=== PATIENT | female | born 1995 ===

== ENCOUNTER 2017-03-21 20:57 | Emergency (ER) | payer MEDICAID ==
[2017-03-21 21:05] VITALS: BP 117/79
[2017-03-21] MEDS ORDERED: diphenhydrAMINE 50 MG/ML SDV IVPUSH ONE (22:02)
[2017-03-21] MEDS ORDERED: Ketorolac 30 MG/ML SDV IVPUSH ONE (22:02)
[2017-03-21] MEDS ORDERED: Ondansetron 4 MG/2 ML SDV IVPUSH STA (22:02)
[2017-03-21] MEDS ORDERED: Sodium Chloride 0.9% 1,000 ML IV ONE (22:02)
[2017-03-21] MEDS ORDERED: ALPRAZolam 0.25 MG Tab PO ONE (22:48)
--- NOTE | 2017-03-21 22:57 | EDM.PDOC ---
ED HPI GENERAL MEDICAL PROBLEM - General Chief Complaint: Headache Stated Complaint: migraine Time Seen by Provider: 03/21/17 22:00 Source of Information: Reports: Patient History Limitations: Reports: No Limitations - History of Present Illness INITIAL COMMENTS - FREE TEXT/NARRATIVE: This patient is a 21 year old female that presents to the ER. Patient reports that 3 days ago she started having a general headache. She reports she has had nausea, photophobia, phonophobia. She reports that she has as history of migraines and this feels typical of her migraines. She reports that she has also had some mild anxiety due to he kids at home. She also has requested a test. Patient denies v, d, f, cp, soa, neck pain, neck stiffness, abd pain, bowel changes. She reports urge to urinate at times. She does not appear in acute distress. Onset: Today Onset Date: 03/18/17 Location: Reports: Head Severity: Mild Improves with: Reports: None Worsens with: Reports: None Associated Symptoms: Reports: Headaches, Nausea/Vomiting. 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 OB/BYN History: HAS ONE CHILD AND HAS HAD ONE MISCARRIAGE Musculoskeletal History: Reports: Other (See Below) Other Musculoskeletal History: slipped disc and fractured disc Social & Family History - Family History Family Medical History: Noncontributory - Tobacco Use Smoking Status *Q: Never Smoker Used Tobacco, but Quit: Yes Month Tobacco Last Used: april Second Hand Smoke Exposure: No - Caffeine Use Caffeine Use: Reports: Soda - Alcohol Use Days Per Week of Alcohol Use: 2 Number of Drinks Per Day: 7 Total Drinks Per Week: 14 - Recreational Drug Use Recreational Drug Use: No ED ROS GENERAL - Review of Systems Review Of Systems: See Below Constitutional: Reports: No Symptoms HEENT: Reports: Other (photophobia, phonophobia. ) Respiratory: Reports: No Symptoms Cardiovascular: Reports: No Symptoms Endocrine: Reports: No Symptoms GI/Abdominal: Reports: Nausea. Denies: Vomiting : Reports: No Symptoms Musculoskeletal: Reports: No Symptoms Skin: Reports: No Symptoms Neurological: Reports: Headache. Denies: Confusion, Dizziness, Numbness, Paresthesia, Pre-Existing Deficit, Seizure, Syncope, Tingling, Tremors, Trouble Speaking, Difficulty Walking, Weakness, Change in Speech, Gait Disturbance Psychiatric: Reports: Anxiety Hematologic/Lymphatic: Reports: No Symptoms Immunologic: Reports: No Symptoms - Physical Exam Exam: See Below Exam Limited By: No Limitations General Appearance: Alert, WD/WN, No Apparent Distress Eye Exam: Bilateral Eye: EOMI, Normal Fundi, Normal Inspection, PERRL Ears: Normal External Exam, Normal Canal, Hearing Grossly Normal, Normal TMs Nose: Normal Inspection, Normal Mucosa, No Blood Throat/Mouth: Normal Inspection, Normal Lips, Normal Teeth, Normal Gums, Normal Oropharynx, Normal Voice, No Airway Compromise Head Exam: Atraumatic, Normocephalic Neck: Normal Inspection, Supple, Non-Tender, Full Range of Motion Respiratory/Chest: No Respiratory Distress, Lungs Clear, Normal Breath Sounds, No Accessory Muscle Use Cardiovascular: Normal Peripheral Pulses, Regular Rate, Rhythm, No Edema, No Gallop, No JVD, No Murmur, No Rub GI/Abdominal: Soft, Non-Tender Neuro Exam (Abbreviated): Alert, Oriented, CN II-XII Intact, Normal Cognition, Normal Gait, No Motor/Sensory Deficits Back Exam: Normal Inspection, Full Range of Motion. No: CVA Tenderness (L), CVA Tenderness (R) Extremities: Normal Inspection, Normal Range of Motion, Non-Tender, No Pedal Edema, Normal Capillary Refill Psychiatric: Normal Affect, Normal Mood Skin Exam: Warm, Dry, Intact, Normal Color, No Rash Course - Vital Signs Last Recorded V/S: Last Vital Signs Temp 97.8 F 03/21/17 20:58 Pulse 78 03/21/17 20:58 Resp 20 03/21/17 20:58 BP 117/79 03/21/17 20:58 Pulse Ox 96 03/21/17 20:58 - Orders/Labs/Meds Labs: Laboratory Tests 03/21/17 03/21/17 Range/Units 21:07 22:14 Urine Color Yellow (YELLOW) Urine Appearance Clear (CLEAR) Urine pH 5.5 (4.5-8.0) Ur Specific [place] >= 1.030 H (1.003-1.020) Urine Protein Trace H (NEGATIVE) mg/dL Urine Glucose (UA) Negative (NEGATIVE) mg/dL Urine Ketones Trace H (NEGATIVE) mg/dL Urine Occult Blood Negative (NEGATIVE) Urine Nitrite Negative (NEGATIVE) Urine Bilirubin Negative (NEGATIVE) Urine Urobilinogen 0.2 (0.2-1.0) EU/dL Ur Leukocyte Esterase Negative (NEGATIVE) Urine RBC Not seen (0-5) /HPF Urine WBC Not seen (0-5) /HPF Urine HCG, Qual Negative Meds: Medications Discontinued Medications Generic Name Dose Route Start Last Admin Trade Name Freq PRN Reason Stop Dose Admin Alprazolam 0.25 mg 03/21/17 22:48 Xanax PO 03/21/17 22:49 NOW ONE Diphenhydramine HCl 25 mg 03/21/17 22:02 03/21/17 22:09 Benadryl IVPUSH 03/21/17 22:03 25 mg ONETIME ONE Administration Sodium Chloride 1,000 mls @ 1,000 mls/hr 03/21/17 22:02 03/21/17 22:09 Normal Saline IV 03/21/17 23:01 1,000 mls/hr .BOLUS ONE Administration Ketorolac Tromethamine 30 mg 03/21/17 22:02 03/21/17 22:09 Toradol IVPUSH 03/21/17 22:03 30 mg ONETIME ONE Administration Ondansetron HCl 4 mg 03/21/17 22:02 03/21/17 22:09 Zofran IVPUSH 03/21/17 22:03 4 mg NOW STA Administration - Re-Assessments/Exams Free Text/Narrative Re-Assessment/Exam: 03/21/17 22:57 Patient reports her pain has improved and her nausea is completely gone. Departure - Departure Time of Disposition: 22:57 Disposition: Home, Self-Care 01 Condition: Good Clinical Impression: Migraine - Discharge Information Instructions: Migraine Headache, [id number] Referrals: Sylwia Snider MD [Primary Care Provider] - Forms: ED Department Discharge Additional Instructions: Followup with your primary care provider Return to the ER for worsening of condition or any emergent concerns Increase fluids Go home to a quite, cool, dark room and rest - Assessment/Plan Plan: PLEASE SEE RN NOTE FOR PFSH.
== END 2017-03-21 23:20 | disposition home or self-care (01) ==
LOC: CC.ED 20:57
DX: G43.909 Migraine, unspecified, not intractable, without status migrainosus (principal)
CPT/HCPCS: 81001; 81025; 96361; 96374; 96375; 99283; A9270; J1200; J1885; J2405; J7030

== ENCOUNTER 2017-03-22 12:56 | Emergency (ER) | payer MEDICAID ==
[2017-03-22 13:02] VITALS: BP 128/85
[2017-03-22] MEDS ORDERED: fentaNYL 100 MCG/2 ML SDV IM ONE (13:36)
[2017-03-22] MEDS ORDERED: Promethazine 25 MG Tab PO STA (13:37)
--- NOTE | 2017-03-22 13:42 | EDM.PDOC ---
ED HPI GENERAL MEDICAL PROBLEM - General Chief Complaint: Headache Stated Complaint: migraine Time Seen by Provider: 03/22/17 13:30 Source of Information: Reports: Patient History Limitations: Reports: No Limitations - History of Present Illness INITIAL COMMENTS - FREE TEXT/NARRATIVE: This patient is a 21 year old female that presents to the ER. Patient reports for 4 days now having global headache. She reports photophobia, phonopobia, throbbing headache. She reports having migraines and this feels like her migraine. Patient was seen yesterday for the same complaint. Patient reports her headache improved here, then went home and her headache returned. Patient denies n, v, d, f, congestion, drainage, neck pain, neck stiffness, cp, soa, abd pain, urinary/bowel changes, rashes. Nuchal rigitity tests are negative. Patient is fully alert and oriented. Has no neuro deficits. Duration: Day(s): (4) Location: Reports: Head Quality: Reports: Throbbing Severity: Moderate Improves with: Reports: None Worsens with: Reports: None Associated Symptoms: Reports: Headaches. 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 OB/BYN History: HAS ONE CHILD AND HAS HAD ONE MISCARRIAGE Musculoskeletal History: Reports: Other (See Below) Other Musculoskeletal History: slipped disc and fractured disc Neurological History: Reports: Migraines Psychiatric History: Reports: Anxiety, Depression Social & Family History - Family History Family Medical History: Noncontributory - Tobacco Use Smoking Status *Q: Never Smoker Used Tobacco, but Quit: Yes Month Tobacco Last Used: april Second Hand Smoke Exposure: No - Caffeine Use Caffeine Use: Reports: Soda - Alcohol Use Days Per Week of Alcohol Use: 2 Number of Drinks Per Day: 7 Total Drinks Per Week: 14 - Recreational Drug Use Recreational Drug Use: No ED ROS GENERAL - Review of Systems Review Of Systems: See Below Constitutional: Reports: No Symptoms HEENT: Reports: Other (photophobia, phonophobia. ). Denies: Rhinitis, Sinus Problem Respiratory: Reports: No Symptoms Cardiovascular: Reports: No Symptoms Endocrine: Reports: No Symptoms GI/Abdominal: Reports: No Symptoms : Reports: No Symptoms Musculoskeletal: Reports: No Symptoms Skin: Reports: No Symptoms Neurological: Reports: Headache. Denies: Confusion, Dizziness, Numbness, Paresthesia, Pre-Existing Deficit, Seizure, Syncope, Tingling, Tremors, Trouble Speaking, Difficulty Walking, Weakness, Change in Speech, Gait Disturbance Psychiatric: Reports: No Symptoms Hematologic/Lymphatic: Reports: No Symptoms Immunologic: Reports: No Symptoms - Physical Exam Exam: See Below Exam Limited By: No Limitations General Appearance: Alert, WD/WN, No Apparent Distress Eye Exam: Bilateral Eye: EOMI, Normal Fundi, PERRL Ears: Normal External Exam, Normal Canal, Hearing Grossly Normal, Normal TMs Nose: Normal Inspection, Normal Mucosa, No Blood Throat/Mouth: Normal Inspection, Normal Lips, Normal Teeth, Normal Gums, Normal Oropharynx, Normal Voice, No Airway Compromise Head Exam: Atraumatic, Normocephalic Neck: Normal Inspection, Supple, Non-Tender, Full Range of Motion, Other ( Negative Kernigs and Brudzinski tests. ) Respiratory/Chest: No Respiratory Distress, Lungs Clear, Normal Breath Sounds, No Accessory Muscle Use Cardiovascular: Normal Peripheral Pulses, Regular Rate, Rhythm, No Edema, No Gallop, No JVD, No Murmur, No Rub Neuro Exam (Abbreviated): Alert, Oriented, CN II-XII Intact, Normal Cognition, Normal Gait, No Motor/Sensory Deficits Back Exam: Normal Inspection, Full Range of Motion Extremities: Normal Inspection, Normal Range of Motion, Non-Tender, No Pedal Edema, Normal Capillary Refill Psychiatric: Normal Affect, Normal Mood Skin Exam: Warm, Dry, Intact, Normal Color, No Rash Course - Vital Signs Last Recorded V/S: Last Vital Signs Temp 97.1 F 03/22/17 12:57 Pulse 85 03/22/17 12:57 Resp 16 03/22/17 12:57 BP 128/85 03/22/17 12:57 Pulse Ox 98 03/22/17 12:57 - Orders/Labs/Meds Orders: Active Orders 24 hr Category Date Time Status Head wo Cont [CT] Stat Exams 03/22/17 13:42 Taken cefTRIAXone [Rocephin] Med 03/22/17 14:30 Once 1 gm IM ONETIME ONE Meds: Medications Discontinued Medications Generic Name Dose Route Start Last Admin Trade Name Rogelio PRN Reason Stop Dose Admin Fentanyl 50 mcg 03/22/17 13:36 Sublimaze IM 03/22/17 13:37 ONETIME ONE Promethazine HCl 25 mg 03/22/17 13:37 Phenergan PO 03/22/17 13:38 NOW STA - Radiology Interpretation Free Text/Narrative:: Head CT: Discussed with radiologist: Acute sinusitis ethmoid, frontal. No acute intracranial abnormality. CT Results Date: 03/22/17 CT Results Time: 14:30 Departure - Departure Time of Disposition: 14:31 Disposition: Home, Self-Care 01 Condition: Fair Clinical Impression: Migraine Acute sinusitis Qualifiers: Sinusitis location: frontal Recurrence: non-recurrent Qualified Code(s): J01.10 - Acute frontal sinusitis, unspecified - Discharge Information Referrals: Sylwia Snider MD [Primary Care Provider] - Forms: ED Department Discharge Additional Instructions: Followup with your primary care provider Return to the ER for worsening of condition or any emergent concerns Increase fluids Over the counter sinus rinses and medications Augmentin 875mg 1 pill twice a day for 10 days #20 no refill Tylenol/Motrin for pain - My Orders Last 24 Hours: My Active Orders 03/22/17 13:42 Head wo Cont [CT] Stat 03/22/17 14:30 cefTRIAXone [Rocephin] 1 gm IM ONETIME ONE - Assessment/Plan Last 24 Hours: My Active Orders 03/22/17 13:42 Head wo Cont [CT] Stat 03/22/17 14:30 cefTRIAXone [Rocephin] 1 gm IM ONETIME ONE Plan: PLEASE SEE RN NOTE FOR PFSH.
[2017-03-22] MEDS ORDERED: cefTRIAXone 1 GM Vial IM ONE (14:30)
[2017-03-22] MEDS ORDERED: Lidocaine 1% 20 ML MDV ONE (14:36)
== END 2017-03-22 15:15 | disposition home or self-care (01) ==
LOC: CC.ED 12:56
DX: G43.909 Migraine, unspecified, not intractable, without status migrainosus (principal); J01.10 Acute frontal sinusitis, unspecified; F41.9 Anxiety disorder, unspecified; F32.9 Major depressive disorder, single episode, unspecified
CPT/HCPCS: 70450; 96372; 99283; A9270; J0696; J3010

== ENCOUNTER 2017-03-28 12:31 | Emergency (ER) | payer MEDICAID ==
[2017-03-28] MEDS ORDERED: Codeine/Promethazine 10-6.25 MG/5 ML Syrup 5 ML UD Cup PO ONE (12:32)
[2017-03-28 12:36] VITALS: BP 136/89
[2017-03-28] MEDS ORDERED: Levofloxacin 500 MG Tab PO ONE (12:53)
[2017-03-28] MEDS ORDERED: Take Home: Codeine/Promethazine 10-6.25 MG/5 ML Syrup 5 ML, 2 Cup Pack PO ONE (12:54)
--- NOTE | 2017-03-28 12:58 | EDM.PDOC ---
ED HPI GENERAL MEDICAL PROBLEM - General Chief Complaint: Respiratory Problem Stated Complaint: sore throat, cough Time Seen by Provider: 03/28/17 12:45 Source of Information: Reports: Patient History Limitations: Reports: No Limitations - History of Present Illness INITIAL COMMENTS - FREE TEXT/NARRATIVE: Patient presents to ER with ongoing sinus congestion, drainage and sore throat. Has had a frequent moist cough. She was seen x2 last weekend in ER for headache and ultimately did have a CT scan of her head which showed moderate sinus inflammation and infection. Was given IV fluids and started on Augmentin. States she finished her last med this am but does not feel better. She states the cough is worse, throat hurts to the point where she can't swallow. Relates had 104 temp last night. Last took tylenol this am at 0830. Onset: Gradual Duration: Day(s): Location: Reports: Head, Chest Quality: Reports: Ache, Burning Severity: Moderate Improves with: Reports: Rest Associated Symptoms: Reports: Cough, cough w sputum, Fever/Chills, Headaches, Loss of Appetite, Malaise, Shortness of Breath. 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 OB/BYN History: HAS 2 CHILD AND HAS HAD 2 MISCARRIAGE Musculoskeletal History: Reports: Other (See Below) Other Musculoskeletal History: slipped disc and fractured disc Neurological History: Reports: Migraines Psychiatric History: Reports: Anxiety, Depression Social & Family History - Family History Family Medical History: Noncontributory - Tobacco Use Smoking Status *Q: Never Smoker Used Tobacco, but Quit: Yes Month Tobacco Last Used: april Second Hand Smoke Exposure: No - Caffeine Use Caffeine Use: Reports: Coffee, Soda - Alcohol Use Days Per Week of Alcohol Use: 2 Number of Drinks Per Day: 7 Total Drinks Per Week: 14 - Recreational Drug Use Recreational Drug Use: No ED ROS GENERAL - Review of Systems Review Of Systems: See Below Constitutional: Reports: Fever, Chills, Malaise, Weakness, Fatigue, Decreased Appetite HEENT: Reports: Rhinitis, Sinus Problem, Throat Pain. Denies: Ear Pain Respiratory: Reports: Shortness of Breath, Cough, Sputum Cardiovascular: Denies: Chest Pain, Edema, Lightheadedness Endocrine: Reports: Fatigue GI/Abdominal: Denies: Abdominal Pain, Constipation, Diarrhea, Nausea, Vomiting : Reports: No Symptoms Musculoskeletal: Reports: No Symptoms Skin: Reports: No Symptoms Neurological: Reports: Headache Psychiatric: Reports: No Symptoms ED EXAM, GENERAL - Physical Exam Exam: See Below Exam Limited By: No Limitations General Appearance: Alert, WD/WN, No Apparent Distress Ears: Normal External Exam, Normal TMs Nose: Normal Inspection, Normal Mucosa, Nasal Drainage, Other (sinus tenderness with palpation) Throat/Mouth: Normal Inspection, Other (posterior pharynx is pink with thick postnasal drainage.) Head: Normocephalic Neck: Normal Inspection, Supple, Non-Tender Respiratory/Chest: No Respiratory Distress, Lungs Clear, Normal Breath Sounds Cardiovascular: Regular Rate, Rhythm GI/Abdominal: Normal Bowel Sounds, Soft, Non-Tender Extremities: Normal Inspection, Normal Capillary Refill Neurological: Alert, Oriented Psychiatric: Normal Affect, Normal Mood Skin Exam: Warm, Dry Course - Vital Signs Last Recorded V/S: Last Vital Signs Temp 97.3 F 03/28/17 12:32 Pulse 95 03/28/17 12:32 Resp 16 03/28/17 12:32 BP 136/89 03/28/17 12:32 Pulse Ox 98 03/28/17 12:32 - Orders/Labs/Meds Meds: Medications Discontinued Medications Generic Name Dose Route Start Last Admin Trade Name Rogelio PRN Reason Stop Dose Admin Levofloxacin 500 mg 03/28/17 12:53 03/28/17 12:57 Levaquin PO 03/28/17 12:54 500 mg ONETIME ONE Administration Promethazine HCl/Codeine 2 packet 03/28/17 12:54 03/28/17 12:57 Take Home: Codeine/Prometh 10-6.25 Mg, 2 Pack PO 03/28/17 12:55 2 packet ONETIME ONE Administration Departure - Departure Time of Disposition: 12:59 Disposition: Home, Self-Care 01 Condition: Good Clinical Impression: Acute sinusitis Qualifiers: Sinusitis location: frontal Recurrence: non-recurrent Qualified Code(s): J01.10 - Acute frontal sinusitis, unspecified - Discharge Information Referrals: PCP,None [Primary Care Provider] - Forms: ED Department Discharge Additional Instructions: 1. Rest 2. Push fluids 3. Levaquin 500 mg every day for 10 days 4. Prometh with codeine cough med 1-2 tsp every 6 hours for cough as needed 5. Tylenol or ibuprofen for fever or discomfort. 6. Follow up in clinic for any ongoing concerns.
== END 2017-03-28 13:03 | disposition home or self-care (01) ==
LOC: CC.ED 12:31
DX: J01.10 Acute frontal sinusitis, unspecified (principal); F41.9 Anxiety disorder, unspecified; F32.9 Major depressive disorder, single episode, unspecified; G43.909 Migraine, unspecified, not intractable, without status migrainosus; Z79.899 Other long term (current) drug therapy
CPT/HCPCS: 99282; A9270

== ENCOUNTER 2017-04-04 10:13 | Emergency (ER) | payer MEDICAID ==
[2017-04-04] MEDS ORDERED: Acetaminophen/HYDROcodone 325-5 MG Tab PO ONE (10:14)
[2017-04-04] MEDS ORDERED: Ondansetron 4 MG Tab.DIS PO ONE (10:14)
[2017-04-04 10:19] VITALS: BP 141/84
[2017-04-04] MEDS ORDERED: Ondansetron 4 MG/2 ML SDV IVPUSH STA ×2 (10:23→12:31)
[2017-04-04] MEDS ORDERED: Sodium Chloride 0.9% 1,000 ML IV ONE (10:23)
[2017-04-04] MEDS ORDERED: Morphine 4 MG/ML Syringe IVPUSH ONE (10:23)
[2017-04-04] MEDS ORDERED: HYDROmorphone 1 MG/ML Syringe IVPUSH ONE ×2 (10:29→12:31)
--- NOTE | 2017-04-04 10:37 | EDM.PDOC ---
ED HPI GENERAL MEDICAL PROBLEM - General Chief Complaint: Abdominal Pain Stated Complaint: abdominal pain Time Seen by Provider: 04/04/17 10:17 Source of Information: Reports: Patient History Limitations: Reports: No Limitations - History of Present Illness INITIAL COMMENTS - FREE TEXT/NARRATIVE: This patient is a 21 year old female well known to the ER department. Patient reports that last night she started having umbilical and RUQ abdominal pain. Patient reports it has become worse today. She reports that last night she started with diarrhea. Then she reports that this morning she had vomiting and nausea. Patient reports he LMP was in February. Patient denies bender, dizziness, f, cough, cold congestion, drainage, cp, soa, urinary changes. Patient is alert and oriented. Onset Date: 04/03/17 Quality: Reports: Ache Severity: Moderate Improves with: Reports: None Worsens with: Reports: None Associated Symptoms: Reports: Loss of Appetite, Nausea/Vomiting. 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: HAS 2 CHILD AND HAS HAD 2 MISCARRIAGE Musculoskeletal History: Reports: Other (See Below) Other Musculoskeletal History: slipped disc and fractured disc Neurological History: Reports: Migraines Psychiatric History: Reports: Anxiety, Depression Social & Family History - Family History Family Medical History: Noncontributory - Tobacco Use Smoking Status *Q: Never Smoker Used Tobacco, but Quit: Yes Month Tobacco Last Used: april Second Hand Smoke Exposure: No - Caffeine Use Caffeine Use: Reports: Coffee, Soda - Alcohol Use Days Per Week of Alcohol Use: 2 Number of Drinks Per Day: 7 Total Drinks Per Week: 14 - Recreational Drug Use Recreational Drug Use: No ED ROS GENERAL - Review of Systems Review Of Systems: See Below Constitutional: Reports: No Symptoms HEENT: Reports: No Symptoms Respiratory: Reports: No Symptoms Cardiovascular: Reports: No Symptoms Endocrine: Reports: No Symptoms GI/Abdominal: Reports: Abdominal Pain, Diarrhea, Nausea, Vomiting : Reports: No Symptoms Musculoskeletal: Reports: No Symptoms Skin: Reports: No Symptoms Neurological: Reports: No Symptoms Psychiatric: Reports: No Symptoms Hematologic/Lymphatic: Reports: No Symptoms Immunologic: Reports: No Symptoms ED EXAM, GI/ABD - Physical Exam Exam: See Below Exam Limited By: No Limitations General Appearance: Alert, WD/WN, No Apparent Distress Eyes: Bilateral: Normal Appearance Ears: Normal External Exam, Normal Canal, Hearing Grossly Normal, Normal TMs Nose: Normal Inspection, Normal Mucosa, No Blood Throat/Mouth: Normal Inspection, Normal Lips, Normal Teeth, Normal Gums, Normal Oropharynx, Normal Voice, No Airway Compromise Head: Atraumatic, Normocephalic Neck: Normal Inspection, Supple, Non-Tender, Full Range of Motion Respiratory/Chest: No Respiratory Distress, Lungs Clear, Normal Breath Sounds, No Accessory Muscle Use Cardiovascular: Normal Peripheral Pulses, Regular Rate, Rhythm, No Edema, No Gallop, No JVD, No Murmur, No Rub GI/Abdominal Exam: Normal Bowel Sounds, Soft, No Organomegaly, No Distention, No Abnormal Bruit, No Mass, Pelvis Stable, Tender (Umbilical/ RUQ. ), Other (+ [place] Sign.). No: Guarding, Rebound Back Exam: Normal Inspection, Full Range of Motion. No: CVA Tenderness (L), CVA Tenderness (R) Extremities: Normal Inspection, Normal Range of Motion, Non-Tender, No Pedal Edema, Normal Capillary Refill Neurological: Alert, Oriented, Normal Cognition Psychiatric: Normal Affect, Normal Mood Skin Exam: Warm, Dry, Intact, Normal Color, No Rash Lymphatic: No Adenopathy Course - Vital Signs Last Recorded V/S: Last Vital Signs Temp 99.1 F 04/04/17 10:14 Pulse 110 H 04/04/17 10:14 Resp 20 04/04/17 10:14 BP 141/84 H 04/04/17 10:14 Pulse Ox 98 04/04/17 10:14 - Orders/Labs/Meds Orders: Active Orders 24 hr Category Date Time Status Abdomen Ltd [US] Stat Exams 04/04/17 11:19 Taken Abdomen Pelvis w Cont [CT] Stat Exams 04/04/17 11:49 Taken Labs: Laboratory Tests 04/04/17 04/04/17 04/04/17 Range/Units 10:22 10:22 10:22 WBC 9.5 (5.0-10.0) 10^3/uL RBC 4.50 (4.00-5.50) 10^6/uL Hgb 12.3 (12.0-16.0) g/dL Hct 37.4 (37.0-47.0) % MCV 83.1 (82.0-94.0) fL MCH 27.3 (27.0-32.0) pg MCHC 32.9 L (33.0-38.0) g/dL RDW Coeff of Mery 13.6 (11.0-15.0) % Plt Count 313 (150-400) 10^3/uL Neut % (Auto) 83.2 (35-85) % Lymph % (Auto) 9.4 L (10-55) % [place] % (Auto) 5.9 (0-16) % Eos % (Auto) 1.4 (0-5) % Baso % (Auto) 0.1 (0-3) % Neut # (Auto) 7.86 H (1.80-7.00) 10^3/uL Lymph # (Auto) 0.89 L (1.00-4.80) 10^3/uL [place] # (Auto) 0.56 (0.00-0.80) 10^3/uL Eos # (Auto) 0.13 (0.00-0.45) 10^3/uL Baso # (Auto) 0.01 10^3/uL Sodium 141 (136-145) mEq/L Potassium 4.3 (3.5-5.0) mEq/L Chloride 106 (98-106) mEq/L Carbon Dioxide 28 (21-32) mmol/L BUN 10 (7-18) mg/dL Creatinine 0.7 (0.6-1.0) mg/dL Est Cr Clr Drug Dosing TNP Estimated GFR (MDRD) > 60 (>=60) mL/min Glucose 104 H (75-99) mg/dL Calcium 8.8 (8.4-10.1) mg/dL Total Bilirubin 0.5 (0.0-1.0) mg/dL AST 6 L (15-37) U/L ALT 15 (12-78) U/L Alkaline Phosphatase 88 (46-116) U/L Total Protein 7.3 (6.4-8.2) g/dL Albumin 3.2 L (3.4-5.0) g/dL Amylase 25 (25-115) U/L HCG, Qual Negative Urine Color (YELLOW) Urine Appearance (CLEAR) Urine pH (4.5-8.0) Ur Specific [place] (1.003-1.020) Urine Protein (NEGATIVE) mg/dL Urine Glucose (UA) (NEGATIVE) mg/dL Urine Ketones (NEGATIVE) mg/dL Urine Occult Blood (NEGATIVE) Urine Nitrite (NEGATIVE) Urine Bilirubin (NEGATIVE) Urine Urobilinogen (0.2-1.0) EU/dL Ur Leukocyte Esterase (NEGATIVE) Urine RBC (0-5) /HPF Urine WBC (0-5) /HPF Ur Squamous Epith Cells (NOT SEEN) /HPF Urine Bacteria (NOT SEEN) /HPF // Range/Units 13:09 WBC (5.0-10.0) 10^3/uL RBC (4.00-5.50) 10^6/uL Hgb (12.0-16.0) g/dL Hct (37.0-47.0) % MCV (82.0-94.0) fL MCH (27.0-32.0) pg MCHC (33.0-38.0) g/dL RDW Coeff of Mery (11.0-15.0) % Plt Count (150-400) 10^3/uL Neut % (Auto) (35-85) % Lymph % (Auto) (10-55) % [place] % (Auto) (0-16) % Eos % (Auto) (0-5) % Baso % (Auto) (0-3) % Neut # (Auto) (1.80-7.00) 10^3/uL Lymph # (Auto) (1.00-4.80) 10^3/uL [place] # (Auto) (0.00-0.80) 10^3/uL Eos # (Auto) (0.00-0.45) 10^3/uL Baso # (Auto) 10^3/uL Sodium (136-145) mEq/L Potassium (3.5-5.0) mEq/L Chloride (98-106) mEq/L Carbon Dioxide (21-32) mmol/L BUN (7-18) mg/dL Creatinine (0.6-1.0) mg/dL Est Cr Clr Drug Dosing Estimated GFR (MDRD) (>=60) mL/min Glucose (75-99) mg/dL Calcium (8.4-10.1) mg/dL Total Bilirubin (0.0-1.0) mg/dL AST (15-37) U/L ALT (12-78) U/L Alkaline Phosphatase (46-116) U/L Total Protein (6.4-8.2) g/dL Albumin (3.4-5.0) g/dL Amylase (25-115) U/L HCG, Qual Urine Color Yellow (YELLOW) Urine Appearance Clear (CLEAR) Urine pH 5.5 (4.5-8.0) Ur Specific [place] <= 1.005 (1.003-1.020) Urine Protein Negative (NEGATIVE) mg/dL Urine Glucose (UA) Negative (NEGATIVE) mg/dL Urine Ketones Negative (NEGATIVE) mg/dL Urine Occult Blood Negative (NEGATIVE) Urine Nitrite Negative (NEGATIVE) Urine Bilirubin Negative (NEGATIVE) Urine Urobilinogen 0.2 (0.2-1.0) EU/dL Ur Leukocyte Esterase Negative (NEGATIVE) Urine RBC Not seen (0-5) /HPF Urine WBC Not seen (0-5) /HPF Ur Squamous Epith Cells Few H (NOT SEEN) /HPF Urine Bacteria Occasional H (NOT SEEN) /HPF Meds: Medications Discontinued Medications Generic Name Dose Route Start Last Admin Trade Name Freq PRN Reason Stop Dose Admin Hydrocodone Bitart/Acetaminophen 3 packet 04/04/17 13:13 Take Home: Acetaminophen/Hydrocod, 2 Tab Pack PO 04/04/17 13:14 ONETIME ONE Hydromorphone HCl 0.5 mg 04/04/17 10:29 04/04/17 10:45 Dilaudid IVPUSH 04/04/17 10:30 0.5 mg ONETIME ONE Administration Hydromorphone HCl 1 mg 04/04/17 12:31 04/04/17 12:43 Dilaudid IVPUSH 04/04/17 12:32 1 mg ONETIME ONE Administration Sodium Chloride 1,000 mls @ 1,000 mls/hr 04/04/17 10:23 04/04/17 10:36 Normal Saline IV 04/04/17 11:22 1,000 mls/hr .BOLUS ONE Administration Iopamidol 100 ml 04/04/17 11:58 04/04/17 12:08 Isovue-300 (61%) IVPUSH 04/04/17 11:59 100 ml ONETIME ONE Administration Morphine Sulfate 4 mg 04/04/17 10:23 04/04/17 12:43 Morphine IVPUSH 04/04/17 10:24 Not Given ONETIME ONE Ondansetron HCl 4 mg 04/04/17 10:23 04/04/17 10:37 Zofran IVPUSH 04/04/17 10:24 4 mg NOW STA Administration Ondansetron HCl 4 mg 04/04/17 12:31 04/04/17 12:41 Zofran IVPUSH 04/04/17 12:32 4 mg NOW STA Administration Ondansetron HCl 3 packet 04/04/17 13:13 Take Home: Ondansetron Odt 4 Mg, 2 Tab Pack PO 04/04/17 13:14 ONETIME ONE Ondansetron HCl Confirm 04/04/17 13:43 Zofran Odt Administered 04/04/17 13:44 Dose 8 mg .ROUTE .[facility] ONE - Radiology Interpretation Free Text/Narrative:: US: Pacnreas, Livernormal. The gallbladder has no stones, but is moderate distended. CT Abd/Pelvis: Discussed with radiologist normal apendix, bowel, normal ct. CT Results Date: 04/04/17 CT Results Time: 13:05 - Re-Assessments/Exams Free Text/Narrative Re-Assessment/Exam: 04/04/17 11:50 Due to patient continued pain, no stones on US, will CT. Departure - Departure Time of Disposition: 13:50 Disposition: Home, Self-Care 01 Condition: Good Clinical Impression: Biliary sludge determined by ultrasound Abdominal pain Qualifiers: Abdominal location: right upper quadrant Qualified Code(s): R10.11 - Right upper quadrant pain - Discharge Information Instructions: Abdominal Pain, Adult, [id number], Cholecystitis, [id number] Referrals: Sylwia Snider MD [Primary Care Provider] - Forms: ED Department Discharge Additional Instructions: Followup with your primary care provider for possible HIDA Scan Return to the ER for worsening of condition or any emergent concerns Increase fluids [place], nonspicy, no grease, no fried foods. Zofran 4mg 1pill every 6 hours as needed for nausea #6 take home #24 no refill [place] 5/325mg 1-2 pills every 4-6 hours as needed for pain #6 take home #15 no refill - My Orders Last 24 Hours: My Active Orders 04/04/17 11:19 Abdomen Ltd [US] Stat 04/04/17 11:49 Abdomen Pelvis w Cont [CT] Stat - Assessment/Plan Last 24 Hours: My Active Orders 04/04/17 11:19 Abdomen Ltd [US] Stat 04/04/17 11:49 Abdomen Pelvis w Cont [CT] Stat Plan: PLEASE SEE RN NOTE FOR PFSH.
[2017-04-04 10:44] LABS: CHLORIDE,CL 106 mEq/L (98-106); SODIUM,NA 141 mEq/L (136-145)
[2017-04-04] MEDS ORDERED: Iopamidol 612 MG/ML 100 ML Bottle IVPUSH ONE (11:58)
[2017-04-04] MEDS ORDERED: Take Home: Ondansetron 4 MG Tab.DIS, 2 Tab Pack PO ONE (13:13)
[2017-04-04] MEDS ORDERED: Take Home: Acetaminophen/HYDROcodone 325-5 MG, 2 Tab Pack PO ONE (13:13)
[2017-04-04] MEDS ORDERED: Ondansetron 4 MG Tab.DIS ONE (13:43)
== END 2017-04-04 14:00 | disposition home or self-care (01) ==
LOC: CC.ED 10:13
DX: K83.9 Disease of biliary tract, unspecified (principal); G43.909 Migraine, unspecified, not intractable, without status migrainosus; F41.9 Anxiety disorder, unspecified; F32.9 Major depressive disorder, single episode, unspecified; Z79.899 Other long term (current) drug therapy
CPT/HCPCS: 36415; 74177; 76705; 80053; 81001; 82150; 84703; 85025; 96361; 96374; 96375; 96376; 99284; A9270; J1170; J2405; J7030; Q9967

== ENCOUNTER 2017-04-29 19:10 | Emergency (ER) | payer MEDICAID ==
[2017-04-29] MEDS ORDERED: Acetaminophen/HYDROcodone 325-5 MG Tab PO ONE (19:11)
[2017-04-29 19:29] VITALS: BP 147/65
--- NOTE | 2017-04-29 19:31 | EDM.PDOC ---
ED HPI GENERAL MEDICAL PROBLEM - General Chief Complaint: General Stated Complaint: my gall bladder is acting up Time Seen by Provider: 04/29/17 19:20 Source of Information: Reports: Patient History Limitations: Reports: No Limitations - History of Present Illness INITIAL COMMENTS - FREE TEXT/NARRATIVE: Patient presents to ED with recurring abdominal pain. States has been having these attacks off an on for now about a month. Has had work up for this and they "feel it is my gallbladder". She had an ultrasound that did show some distention and patient states that her usual provider in [place] suggested a HIDA scan. She was seen there earlier today as this pain has been off an on now again for 3 days. States pain occurs in the RUQ and is sharp and intense. Patient denies nausea. No vomiting. No bowel changes or urinary complaints. 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 Right Abdomen Pain Score (Numeric/FACES): 9 - Related Data Allergies Allergy/AdvReac Type Severity Reaction Status Date / Time No Known Allergies Allergy Verified 04/29/17 19:15 Home Meds: Home Meds Acetaminophen [Tylenol] 650 mg PO Q6HR PRN 07/28/15 [History] Sertraline [Zoloft] 50 mg PO DAILY 03/22/17 [History] busPIRone [Buspar] 5 mg PO TID 04/29/17 [History] Past Medical History - Past Health History Medical/Surgical History: Denies 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 History: HAS 2 CHILD AND HAS HAD 2 MISCARRIAGE Musculoskeletal History: Reports: Other (See Below) Other Musculoskeletal History: slipped disc and fractured disc Neurological History: Reports: Migraines Psychiatric History: Reports: Anxiety, Depression Social & Family History - Family History Family Medical History: Noncontributory - Tobacco Use Smoking Status *Q: Former Smoker Used Tobacco, but Quit: Yes Month Tobacco Last Used: april Second Hand Smoke Exposure: No - Caffeine Use Caffeine Use: Reports: Coffee, Soda - Alcohol Use Days Per Week of Alcohol Use: 2 Number of Drinks Per Day: 7 Total Drinks Per Week: 14 - Recreational Drug Use Recreational Drug Use: No ED ROS GENERAL - Review of Systems Review Of Systems: See Below Constitutional: Reports: Decreased Appetite. Denies: Fever, Chills HEENT: Reports: No Symptoms Respiratory: Denies: Shortness of Breath, Cough Cardiovascular: Denies: Chest Pain, Edema, Lightheadedness Endocrine: Denies: Fatigue GI/Abdominal: Reports: Abdominal Pain, Decreased Appetite. Denies: Black Stool , Bloody Stool, Nausea, Vomiting : Reports: No Symptoms Musculoskeletal: Reports: No Symptoms Skin: Reports: No Symptoms Neurological: Reports: No Symptoms ED EXAM, GENERAL - Physical Exam Exam: See Below Exam Limited By: No Limitations General Appearance: Alert, WD/WN, No Apparent Distress Ears: Normal External Exam, Normal TMs Nose: Normal Inspection, Normal Mucosa, No Blood Throat/Mouth: Normal Inspection, Normal Oropharynx Head: Normocephalic Neck: Normal Inspection, Supple, Non-Tender Respiratory/Chest: No Respiratory Distress, Lungs Clear, Normal Breath Sounds Cardiovascular: Regular Rate, Rhythm GI/Abdominal: Normal Bowel Sounds, Soft, Tender (right upper quadrant pain with palpation) Extremities: Normal Inspection, Normal Capillary Refill Neurological: Alert, Oriented Psychiatric: Normal Affect, Normal Mood Skin Exam: Warm, Dry Course - Vital Signs Last Recorded V/S: Last Vital Signs Temp 97.9 F 04/29/17 19:27 Pulse 80 04/29/17 19:27 Resp 18 04/29/17 19:27 BP 147/65 H 04/29/17 19:27 Pulse Ox 98 04/29/17 19:27 - Orders/Labs/Meds Orders: Active Orders 24 hr Category Date Time Status Acetaminophen/HYDROcodone [Take Home: Acetaminophen/ Med 04/29/17 20:29 Once HYDROcod, 2 Tab Pack] 2 packet PO ONETIME ONE Labs: Laboratory Tests 04/29/17 04/29/17 04/29/17 Range/Units 17:40 19:40 19:40 WBC 10.1 H (5.0-10.0) 10^3/uL RBC 4.42 (4.00-5.50) 10^6/uL Hgb 12.0 (12.0-16.0) g/dL Hct 37.5 (37.0-47.0) % MCV 84.8 (82.0-94.0) fL MCH 27.1 (27.0-32.0) pg MCHC 32.0 L (33.0-38.0) g/dL RDW Coeff of Mery 13.7 (11.0-15.0) % Plt Count 352 (150-400) 10^3/uL Neut % (Auto) 61.2 (35-85) % Lymph % (Auto) 26.3 (10-55) % [place] % (Auto) 6.3 (0-16) % Eos % (Auto) 6.0 H (0-5) % Baso % (Auto) 0.2 (0-3) % Neut # (Auto) 6.20 (1.80-7.00) 10^3/uL Lymph # (Auto) 2.66 (1.00-4.80) 10^3/uL [place] # (Auto) 0.64 (0.00-0.80) 10^3/uL Eos # (Auto) 0.61 H (0.00-0.45) 10^3/uL Baso # (Auto) 0.02 10^3/uL Sodium 141 (136-145) mEq/L Potassium 3.5 (3.5-5.0) mEq/L Chloride 106 (98-106) mEq/L Carbon Dioxide 29 (21-32) mmol/L BUN 12 (7-18) mg/dL Creatinine 0.7 (0.6-1.0) mg/dL Est Cr Clr Drug Dosing 90.55 mL/min Estimated GFR (MDRD) > 60 (>=60) mL/min Glucose 83 (75-99) mg/dL Calcium 9.0 (8.4-10.1) mg/dL Total Bilirubin 0.2 (0.0-1.0) mg/dL AST 11 L (15-37) U/L ALT 22 (12-78) U/L Alkaline Phosphatase 107 (46-116) U/L C-Reactive Protein 1.8 H (0.2-0.8) mg/dL Total Protein 7.9 (6.4-8.2) g/dL Albumin 3.7 (3.4-5.0) g/dL HCG, Qual Urine Color Yellow (YELLOW) Urine Appearance Slightly cloudy (CLEAR) Urine pH 7.0 (4.5-8.0) Ur Specific [place] 1.025 H (1.003-1.020) Urine Protein Negative (NEGATIVE) mg/dL Urine Glucose (UA) Negative (NEGATIVE) mg/dL Urine Ketones Negative (NEGATIVE) mg/dL Urine Occult Blood Negative (NEGATIVE) Urine Nitrite Negative (NEGATIVE) Urine Bilirubin Negative (NEGATIVE) Urine Urobilinogen 0.2 (0.2-1.0) EU/dL Ur Leukocyte Esterase Negative (NEGATIVE) Urine RBC Not seen (0-5) /HPF Urine WBC Not seen (0-5) /HPF Ur Squamous Epith Cells Moderate H (NOT SEEN) /HPF Amorphous Sediment Few H (NOT SEEN) /HPF Urine Bacteria Few H (NOT SEEN) /HPF 04/29/17 Range/Units 19:40 WBC (5.0-10.0) 10^3/uL RBC (4.00-5.50) 10^6/uL Hgb (12.0-16.0) g/dL Hct (37.0-47.0) % MCV (82.0-94.0) fL MCH (27.0-32.0) pg MCHC (33.0-38.0) g/dL RDW Coeff of Mery (11.0-15.0) % Plt Count (150-400) 10^3/uL Neut % (Auto) (35-85) % Lymph % (Auto) (10-55) % [place] % (Auto) (0-16) % Eos % (Auto) (0-5) % Baso % (Auto) (0-3) % Neut # (Auto) (1.80-7.00) 10^3/uL Lymph # (Auto) (1.00-4.80) 10^3/uL [place] # (Auto) (0.00-0.80) 10^3/uL Eos # (Auto) (0.00-0.45) 10^3/uL Baso # (Auto) 10^3/uL Sodium (136-145) mEq/L Potassium (3.5-5.0) mEq/L Chloride (98-106) mEq/L Carbon Dioxide (21-32) mmol/L BUN (7-18) mg/dL Creatinine (0.6-1.0) mg/dL Est Cr Clr Drug Dosing mL/min Estimated GFR (MDRD) (>=60) mL/min Glucose (75-99) mg/dL Calcium (8.4-10.1) mg/dL Total Bilirubin (0.0-1.0) mg/dL AST (15-37) U/L ALT (12-78) U/L Alkaline Phosphatase (46-116) U/L C-Reactive Protein (0.2-0.8) mg/dL Total Protein (6.4-8.2) g/dL Albumin (3.4-5.0) g/dL HCG, Qual Negative Urine Color (YELLOW) Urine Appearance (CLEAR) Urine pH (4.5-8.0) Ur Specific [place] (1.003-1.020) Urine Protein (NEGATIVE) mg/dL Urine Glucose (UA) (NEGATIVE) mg/dL Urine Ketones (NEGATIVE) mg/dL Urine Occult Blood (NEGATIVE) Urine Nitrite (NEGATIVE) Urine Bilirubin (NEGATIVE) Urine Urobilinogen (0.2-1.0) EU/dL Ur Leukocyte Esterase (NEGATIVE) Urine RBC (0-5) /HPF Urine WBC (0-5) /HPF Ur Squamous Epith Cells (NOT SEEN) /HPF Amorphous Sediment (NOT SEEN) /HPF Urine Bacteria (NOT SEEN) /HPF Meds: Medications Discontinued Medications Generic Name Dose Route Start Last Admin Trade Name Rogelio PRN Reason Stop Dose Admin Ketorolac Tromethamine 60 mg 04/29/17 20:06 04/29/17 20:17 Toradol IM 04/29/17 20:07 60 mg ONETIME ONE Administration - Re-Assessments/Exams Free Text/Narrative Re-Assessment/Exam: 04/29/17 20:20 lab results essentially negative Departure - Departure Time of Disposition: 20:27 Disposition: Home, Self-Care 01 Condition: Good Clinical Impression: RUQ pain - Discharge Information Referrals: Provider,Unknown [Primary Care Provider] - Forms: ED Department Discharge Additional Instructions: 1. Push fluids 2. Ibuprofen as needed for pain 3. [place] 5/325 every 6 hours as needed for pain 4. Need to contact primary provider to set up HIDA scan - My Orders Last 24 Hours: My Active Orders 04/29/17 20:29 Acetaminophen/HYDROcodone [Take Home: Acetaminophen/HYDROcod, 2 Tab Pack] 2 packet PO ONETIME ONE - Assessment/Plan Last 24 Hours: My Active Orders 10/12/17 20:29 Acetaminophen/HYDROcodone [Take Home: Acetaminophen/HYDROcod, 2 Tab Pack] 2 packet PO ONETIME ONE
[2017-04-29 19:57] LABS: CHLORIDE,CL 106 mEq/L (98-106); SODIUM,NA 141 mEq/L (136-145)
[2017-04-29] MEDS ORDERED: Ketorolac 60 MG/2 ML SDV IM ONE (20:06)
[2017-04-29] MEDS ORDERED: Take Home: Acetaminophen/HYDROcodone 325-5 MG, 2 Tab Pack PO ONE (20:29)
== END 2017-04-29 20:40 | disposition home or self-care (01) ==
LOC: CC.ED 19:10
DX: R10.11 Right upper quadrant pain (principal); F41.9 Anxiety disorder, unspecified; F32.9 Major depressive disorder, single episode, unspecified; Z87.891 Personal history of nicotine dependence; Z79.899 Other long term (current) drug therapy
CPT/HCPCS: 36415; 80053; 81001; 84703; 85025; 86140; 96372; 99283; A9270; J1885

== ENCOUNTER 2017-05-24 20:25 | Emergency (ER) | payer MEDICAID ==
[2017-05-24 20:39] VITALS: BP 133/86
[2017-05-24 21:02] LABS: CHLORIDE,CL 103 mEq/L (98-106); SODIUM,NA 140 mEq/L (136-145)
[2017-05-24] MEDS ORDERED: HYDROmorphone 1 MG/ML Syringe IM ONE (21:05)
--- NOTE | 2017-05-24 21:23 | EDM.PDOC ---
ED HPI GENERAL MEDICAL PROBLEM - General Chief Complaint: Chest Pain Stated Complaint: CHEST PAIN Time Seen by Provider: 05/24/17 20:30 Source of Information: Reports: Patient - History of Present Illness INITIAL COMMENTS - FREE TEXT/NARRATIVE: Patient is a 21 year old female who presents to the ER via EMS after an episode of sudden onset chest pain while at work. Patient reports she was working at [employer] when she had sudden onset of sharp constant chest pain in her substernal area. She reports she feels clammy and somewhat short of breath due to the pain. She also reports that while she was at work she felt lightheaded. Denies nausea, vomiting, diarrhea, fever, chills, abdominal pain. Does report a history of anxiety and depression. Reports she has had panic attacks in the past , but never with this severe of chest pain so it worried her. Denies any significant cardiac history in her mother and father. Denies any personal cardiac history. Denies any issues prior to sudden onset of chest pain. Does report that her boyfriend is away from home right now and things will be better when he gets back home. Patient tearful when discussing this. Denies any suicidal thoughts or ideations. Onset: Sudden Onset Date: 05/24/17 Onset Time: 20:00 Duration: Constant Location: Reports: Chest Quality: Reports: Sharp Severity: Severe Improves with: Reports: None Worsens with: Reports: None Associated Symptoms: Reports: Chest Pain, Shortness of Breath (due to pain). 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 Chest Pain Score (Numeric/FACES): 10 - Related Data Allergies Allergy/AdvReac Type Severity Reaction Status Date / Time No Known Allergies Allergy Verified 05/24/17 20:38 Home Meds: Home Meds Acetaminophen [Tylenol] 650 mg PO Q6HR PRN 07/28/15 [History] Sertraline [Zoloft] 50 mg PO DAILY 03/22/17 [History] busPIRone [Buspar] 5 mg PO TID 04/29/17 [History] Past Medical History - Past Health History Medical/Surgical History: Denies 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 OB/BYN History: HAS 2 CHILD AND HAS HAD 2 MISCARRIAGE Musculoskeletal History: Reports: Other (See Below) Other Musculoskeletal History: slipped disc and fractured disc Neurological History: Reports: Migraines Psychiatric History: Reports: Anxiety, Depression Social & Family History - Family History Family Medical History: Noncontributory - Tobacco Use Smoking Status *Q: Never Smoker Used Tobacco, but Quit: Yes Month Tobacco Last Used: april Second Hand Smoke Exposure: No - Caffeine Use Caffeine Use: Reports: None - Alcohol Use Days Per Week of Alcohol Use: 2 Number of Drinks Per Day: 7 Total Drinks Per Week: 14 - Recreational Drug Use Recreational Drug Use: No ED ROS GENERAL - Review of Systems Review Of Systems: See Below Constitutional: Reports: No Symptoms HEENT: Reports: No Symptoms Respiratory: Reports: Shortness of Breath. Denies: Wheezing, Pleuritic Chest Pain, Cough, Sputum, Hemoptysis Cardiovascular: Reports: Chest Pain (substernal), Lightheadedness. Denies: Blood Pressure Problem, Claudication, Dyspnea on Exertion, Edema, Orthopnea, Palpitations, PND, Syncope Endocrine: Reports: No Symptoms GI/Abdominal: Reports: No Symptoms : Reports: No Symptoms Musculoskeletal: Reports: No Symptoms Skin: Reports: No Symptoms Neurological: Reports: No Symptoms. Denies: Dizziness, Headache, Numbness, Syncope, Tingling Psychiatric: Reports: Anxiety, Depression Hematologic/Lymphatic: Reports: No Symptoms Immunologic: Reports: No Symptoms ED EXAM, GENERAL - Physical Exam Exam: See Below Exam Limited By: No Limitations General Appearance: Alert, WD/WN, Anxious, Mild Distress Eye Exam: Bilateral Eye: EOMI, Normal Fundi, Normal Inspection, PERRL Ears: Normal External Exam, Normal Canal, Hearing Grossly Normal, Normal TMs Ear Exam: Bilateral Ear: Auricle Normal, Canal Normal, TM normal Nose: Normal Inspection, Normal Mucosa, No Blood Throat/Mouth: Normal Inspection, Normal Lips, Normal Teeth, Normal Gums, Normal Oropharynx, Normal Voice, No Airway Compromise Head: Atraumatic, Normocephalic Neck: Normal Inspection, Supple, Non-Tender, Full Range of Motion Respiratory/Chest: No Respiratory Distress, Lungs Clear, Normal Breath Sounds, No Accessory Muscle Use, Chest Non-Tender. No: Respiratory Distress, Rales, Rhonchi, Wheezing Cardiovascular: Normal Peripheral Pulses, Regular Rate, Rhythm, No Edema, No Gallop, No JVD, No Murmur, No Rub Peripheral Pulses: 2+: Dorsalis Pedis (L), Dorsalis Pedis (R) GI/Abdominal: Normal Bowel Sounds, Soft, Non-Tender, No Organomegaly, No Distention, No Abnormal Bruit, No Mass (Female) Exam: Deferred Rectal (Female) Exam: Deferred Back Exam: Normal Inspection, Full Range of Motion. No: CVA Tenderness (L), CVA Tenderness (R) Extremities: Normal Inspection, Normal Range of Motion, Non-Tender, Normal Capillary Refill, No Pedal Edema Neurological: Alert, Oriented, CN II-XII Intact, Normal Cognition, Normal Gait, Normal Reflexes, No Motor/Sensory Deficits Psychiatric: Anxious, Depressed Mood, Tearful Skin Exam: Warm, Dry, Intact, Normal Color, No Rash Lymphatic: No Adenopathy Course - Vital Signs Last Recorded V/S: Last Vital Signs Temp 99.0 F 05/24/17 20:36 Pulse 90 05/24/17 20:36 Resp 16 05/24/17 20:36 BP 133/86 05/24/17 20:36 Pulse Ox 100 05/24/17 20:36 - Orders/Labs/Meds Orders: Active Orders 24 hr Category Date Time Status Chest 2V [CR] Stat Exams 05/24/17 20:27 Taken Labs: Laboratory Tests 05/24/17 05/24/17 05/24/17 Range/Units 08:40 08:40 08:40 WBC 9.5 (5.0-10.0) 10^3/uL RBC 4.58 (4.00-5.50) 10^6/uL Hgb 12.4 (12.0-16.0) g/dL Hct 38.1 (37.0-47.0) % MCV 83.2 (82.0-94.0) fL MCH 27.1 (27.0-32.0) pg MCHC 32.5 L (33.0-38.0) g/dL RDW Coeff of Mery 13.5 (11.0-15.0) % Plt Count 392 (150-400) 10^3/uL Neut % (Auto) 65.2 (35-85) % Lymph % (Auto) 25.7 (10-55) % [place] % (Auto) 5.1 (0-16) % Eos % (Auto) 3.7 (0-5) % Baso % (Auto) 0.3 (0-3) % Neut # (Auto) 6.20 (1.80-7.00) 10^3/uL Lymph # (Auto) 2.45 (1.00-4.80) 10^3/uL [place] # (Auto) 0.49 (0.00-0.80) 10^3/uL Eos # (Auto) 0.35 (0.00-0.45) 10^3/uL Baso # (Auto) 0.03 10^3/uL PT 10.3 (9.7-12.3) SEC INR 0.96 (0.92-1.18) APTT 30.3 (20.0-45.0) SEC Sodium 140 (136-145) mEq/L Potassium 3.3 L (3.5-5.0) mEq/L Chloride 103 (98-106) mEq/L Carbon Dioxide 27 (21-32) mmol/L BUN 12 (7-18) mg/dL Creatinine 0.7 (0.6-1.0) mg/dL Est Cr Clr Drug Dosing 90.55 mL/min Estimated GFR (MDRD) > 60 (>=60) mL/min Glucose 84 (75-99) mg/dL Calcium 9.2 (8.4-10.1) mg/dL Lactate Dehydrogenase 167 (100-190) U/L Troponin I < 0.017 (0.00-0.06) ng/mL Meds: Medications Discontinued Medications Generic Name Dose Route Start Last Admin Trade Name Jean-Claudeq PRN Reason Stop Dose Admin Hydromorphone HCl 1 mg 05/24/17 21:05 05/24/17 21:08 Dilaudid IM 05/24/17 21:06 1 mg ONETIME ONE Administration - Re-Assessments/Exams Free Text/Narrative Re-Assessment/Exam: 05/24/17 21:00 Labs, EKG, and CXR results discussed with patient. Pain improved with dilaudid. Departure - Departure Time of Disposition: 21:18 Disposition: Home, Self-Care 01 Condition: Good Clinical Impression: Panic attack, Anxiety, Chest pain due to psychological stress Instructions: Panic Attacks, [id number] Referrals: PCP,None [Primary Care Provider] - Forms: ED Department Discharge Additional Instructions: Pain likely related to anxiety. Discussed that panic attacks and anxiety can cause this type of sharp chest pain. Cardiac workup negative. Labs and EKG all normal. Follow up with primary care provider. Return to ER if symptoms worsen or do not improve. - Problem List & Annotations (1) Anxiety SNOMED Code(s): 14980158 Code(s): F41.9 - ANXIETY DISORDER, UNSPECIFIED Status: Acute Current Visit: Yes (2) Chest pain due to psychological stress SNOMED Code(s): 64399559 Code(s): R07.9 - CHEST PAIN, UNSPECIFIED; F43.9 - REACTION TO SEVERE STRESS, UNSPECIFIED Status: Acute Current Visit: Yes (3) Panic attack SNOMED Code(s): 186187796 Code(s): F41.0 - PANIC DISORDER [EPISODIC PAROXYSMAL ANXIETY] Status: Acute Current Visit: Yes - Problem List Review Problem List Initiated/Reviewed/Updated: Yes - My Orders Last 24 Hours: My Active Orders 05/24/17 20:27 Chest 2V [CR] Stat - Assessment/Plan Last 24 Hours: My Active Orders 05/24/17 20:27 Chest 2V [CR] Stat Plan: No emergent cause identified for chest pain. Troponin and EKG negative. Continue current anxiety and depression medications. Follow up with PCP. Return to ER if symptoms worsen or do not improve.
== END 2017-05-24 21:38 | disposition home or self-care (01) ==
LOC: CC.ED 20:25
DX: F41.0 Panic disorder [episodic paroxysmal anxiety] (principal); F45.41 Pain disorder exclusively related to psychological factors; R07.2 Precordial pain; F32.9 Major depressive disorder, single episode, unspecified; Z87.891 Personal history of nicotine dependence; Z79.899 Other long term (current) drug therapy
CPT/HCPCS: 36415; 71020; 80048; 83615; 84484; 85025; 85610; 85730; 93005; 96372; 99285; J1170

== ENCOUNTER 2018-01-01 16:20 | Emergency (ER) | payer MEDICAID ==
[2018-01-01 16:28] VITALS: BP 148/96
[2018-01-01] MEDS ORDERED: Ketorolac 60 MG/2 ML SDV IM ONE (16:58)
--- NOTE | 2018-01-01 17:07 | EDM.PDOC ---
ED HPI GENERAL MEDICAL PROBLEM - General Chief Complaint: Headache Stated Complaint: headache x 7 days Time Seen by Provider: 01/01/18 16:55 Source of Information: Reports: Patient History Limitations: Reports: No Limitations - History of Present Illness INITIAL COMMENTS - FREE TEXT/NARRATIVE: Patient presents today with complaints of a headache for the last 7 days. States has tried multiple OTC meds for this without much control. Rates at a 10. Has associated photophobia, nausea and dizziness. Relates that she has previously had a headache like this back in March. Was seen in the ER and a CT scan was done that did show sinusitis. Treated with antibiotics and got better. However, with this headache, patient states she has no sinus symptoms like she did at that time. She denies fever. No facial pressure. No neurological changes with this headache. Headache is located to left frontal region and left parietal area as well as she has some tenderness in her neck. Onset: Gradual Duration: Day(s): Location: Reports: Head Quality: Reports: Throbbing Severity: Severe Improves with: Reports: None Associated Symptoms: Reports: Nausea/Vomiting. 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, NSAIDS Headache Pain Score (Numeric/FACES): 10 - Related Data Allergies Allergy/AdvReac Type Severity Reaction Status Date / Time No Known Allergies Allergy Verified 05/24/17 20:38 Home Meds: Home Meds Acetaminophen [Tylenol] 650 mg PO Q6HR PRN 07/28/15 [History] Sertraline [Zoloft] 100 mg PO DAILY 03/22/17 [History] busPIRone [Buspar] 10 mg PO BID 04/29/17 [History] Past Medical History - Past Health History Medical/Surgical History: Denies 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/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 History: HAS 2 CHILD AND HAS HAD 2 MISCARRIAGE Musculoskeletal History: Reports: Other (See Below) Other Musculoskeletal History: slipped disc and fractured disc Neurological History: Reports: Migraines Psychiatric History: Reports: Anxiety, Depression Social & Family History - Family History Family Medical History: Noncontributory - Tobacco Use Smoking Status *Q: Never Smoker - Caffeine Use Caffeine Use: Reports: None - Recreational Drug Use Recreational Drug Use: No ED ROS GENERAL - Review of Systems Review Of Systems: See Below Constitutional: Denies: Fever, Chills, Malaise, Weakness, Fatigue, Decreased Appetite HEENT: Denies: Ear Discharge, Ear Pain, Sinus Problem, Throat Pain, Vertigo Respiratory: Denies: Shortness of Breath, Cough Cardiovascular: Denies: Chest Pain, Edema, Other Endocrine: Denies: Fatigue GI/Abdominal: Denies: Abdominal Pain, Nausea, Vomiting : Reports: No Symptoms Musculoskeletal: Reports: Neck Pain Neurological: Reports: Dizziness, Headache - Physical Exam Exam: See Below Exam Limited By: No Limitations General Appearance: Alert, WD/WN, No Apparent Distress Eye Exam: Bilateral Eye: EOMI, PERRL Ears: Normal External Exam, Normal TMs Nose: Normal Inspection, Normal Mucosa, No Blood Throat/Mouth: Normal Inspection, Normal Oropharynx Head Exam: Normocephalic Neck: Normal Inspection, Supple, Full Range of Motion, Tender Lateral Respiratory/Chest: No Respiratory Distress, Lungs Clear, Normal Breath Sounds Cardiovascular: Regular Rate, Rhythm Neuro Exam (Abbreviated): Alert, Oriented, CN II-XII Intact, Normal Cognition, Normal Gait, Normal Reflexes, No Motor/Sensory Deficits Extremities: Normal Inspection Psychiatric: Normal Affect, Normal Mood Skin Exam: Warm, Dry Course - Vital Signs Last Recorded V/S: Last Vital Signs Temp 97.2 F 01/01/18 16:23 Pulse 90 01/01/18 16:23 Resp 20 01/01/18 16:23 BP 148/96 H 01/01/18 16:23 Pulse Ox 99 01/01/18 16:23 - Orders/Labs/Meds Meds: Medications Discontinued Medications Generic Name Dose Route Start Last Admin Trade Name Rogelio PRN Reason Stop Dose Admin Ketorolac Tromethamine 60 mg 01/01/18 16:58 Toradol IM 01/01/18 16:59 ONETIME ONE Orphenadrine Citrate 60 mg 01/01/18 16:59 Norflex IM 01/01/18 17:00 NOW ONE Departure - Departure Time of Disposition: 17:06 Disposition: Home, Self-Care 01 Condition: Good Clinical Impression: Tension-type headache - Discharge Information Referrals: Emily Rodriguez PA-C [Primary Care Provider] - Additional Instructions: 1. Rest 2. Push fluids 3. Tylenol or ibuprofen for any remaining headache 4. Follow up in clinic for recheck of blood pressure 5. Call with any concerns.
== END 2018-01-01 17:10 | disposition home or self-care (01) ==
LOC: CC.ED 16:20
DX: G44.209 Tension-type headache, unspecified, not intractable (principal); Z79.899 Other long term (current) drug therapy
CPT/HCPCS: 96372; 99283; J1885; J2360